=== PATIENT | female | born 1940 | race Caucasian/White ===

== ENCOUNTER 2017-11-20 18:30 | Emergency (ER) | payer OTHER ==
--- NOTE | 2017-11-20 20:00 | ED.PDOC ---
History of Present Illness - General Chief Complaint: Upper Extremity Injury Stated Complaint: Skin tear to the arm Time Seen by Provider: 11/20/17 19:20 Source: patient Exam Limitations: no limitations Additional Information: DOG FELL ONTO ARM AND SCRATCHED PT. HAS CONTINUED TO BLEED - History of Present Illness Occurred: other - 5 HOURS [employer] Pain - Upper Extremity: moderate: Forearm, left Improving Factors: nothing Worsening Factors: nothing Associated Symptoms: HAS CONTINUED TO BLEED. PT ON PLAVIX Allergies/Adverse Reactions: Allergies NO KNOWN ALLERGY Allergy (Verified 11/20/17 18:49) Home Medications: Ambulatory Orders Plavix 11/20/17 Review of Systems - Review of Systems Constitutional: Denies: chills, fever, weakness EENTM: States: no symptoms reported Respiratory: States: no symptoms reported Cardiology: States: no symptoms reported Musculoskeletal: States: other - NO ARM PAIN Skin: States: other - SKIN TEAR Neurological: States: no symptoms reported Past Medical History (General) - Patient Medical History Hx Stroke: Yes Hx Congestive Heart Failure: No Hx Hypertension: Yes Hx Diabetes: No Surgical History: tonsillectomy - Vaccination History Hx Tetanus, Diphtheria Vaccination: No Hx Influenza Vaccination: No Hx Pneumococcal Vaccination: No - Social History Hx Tobacco Use: Yes Family Medical History - Family History Mother Family History: Unknown Living Status: Unknown Physical Exam - Physical Exam General Appearance: Alert, No apparent distress Eyes, Ears, Nose, Throat Exam: PERRL/EOMI, normal ENT inspection Neck: non-tender, full range of motion Elbow/Forearm Exam: ecchymosis - SKIN TEAR TO L FOREARM WITH SOME ASSOCIATED BRUISING. CONTINUED OOZING. Wrist Exam: normal inspection, no evidence of injury Hand Exam: normal inspection, no evidence of injury Neuro/Tendon: normal sensation Mental Status: alert Skin Exam: other - SEE MS EXAM Progress - Progress Progress: 11/20/17 20:01 PRESSURE DRESSING APPLIED. 11/20/17 21:20 STILL OOZING FROM UNDER THE PRESSURE DRESSING. LAB REVIEWED, WILL CLOSE WITH SUTURES. 11/20/17 22:18 WENT TO CLOSE WOUND AND BLEEDING SEEMS TO HAVE STOPPED. BASIM WRAP WAS REMOVED BUT 4X4'S WERE NOT. REWRAPPED WITH BASIM. PT WILL BE DISCHARGED AND OBSERVE. Departure - Departure Clinical Impression: Skin tear of forearm without complication Qualifiers: Encounter type: initial encounter Laterality: left Qualified Code(s): S51.812A - Laceration without foreign body of left forearm, initial encounter Hypertension Qualifiers: Hypertension type: essential hypertension Qualified Code(s): I10 - Essential ( primary) hypertension Time of Disposition: 22:16 Disposition: Discharge to Home or Self Care Condition: Good Departure Forms: ED Discharge - Pt. Copy, Patient Portal Self Enrollment Instructions: DI for Arm Pain, DI for Minor Laceration Home Medications: Ambulatory Orders Plavix 11/20/17 Additional Instructions: LEAVE DRESSING ON UNTIL TOMORROW, MAY LOOSEN IF NEEDED, RETURN IF BLEEDING REOCCURS
[2017-11-20] MEDS ORDERED: LIDOCAINE 1% W/ EPINEPHRINE 20 ML VIAL INJ ONE ×2 (21:19→21:23)
[2017-11-20] MEDS ORDERED: TETANUS,DIPHTHERIA,PERTUSSIS 1 EA SYG IM ONE (21:40)
[2017-11-20 22:43] VITALS: BP 153/76; TEMP 97.1; O2SAT 96
== END 2017-11-20 22:40 | disposition home or self-care (01) ==
LOC: ER 18:30
DX: S51.812A Laceration without foreign body of left forearm, initial encounter (principal); I10 Essential (primary) hypertension; Z23 Encounter for immunization; Z79.02 Long term (current) use of antithrombotics/antiplatelets; Z86.73 Personal history of transient ischemic attack (TIA), and cerebral infarction without residual deficits; Z87.891 Personal history of nicotine dependence; W54.8XXA Other contact with dog, initial encounter